=== PATIENT | male | born 1975 | race Caucasian/White ===

== ENCOUNTER → 2020-12-04 | Outpatient (CLI) | payer OTHER ==
[2020-12-05 09:13] LABS: FSH, SERUM 5.5 mIU/mL (1.5-12.4); PROLACTIN 7.9 ng/mL (4.0-15.2)
[2020-12-06 15:10] LABS: TESTOSTERONE, SERUM 146 ng/dL (264-916)
== END ==
LOC: LAB 09:33
PROVIDERS: Emergency Medicine
DX: I10 Essential (primary) hypertension (principal); E78.2 Mixed hyperlipidemia; F52.21 Male erectile disorder; R74.02 Elevation of levels of lactic acid dehydrogenase [LDH]
CPT/HCPCS: 36415; 83001; 83002; 84146; 84402; 84403

== ENCOUNTER → 2021-06-07 | Outpatient (CLI) | payer OTHER ==
[2021-06-07 12:28] LABS: RED BLOOD COUNT 5.09 M/UL (4.20-5.50)
[2021-06-07 12:47] LABS: BUN/CREATININE RATIO 26 (0-10)
[2021-06-09 12:30] LABS: CHOLESTEROL, TOTAL 170 mg/dL (100-199); HDL SIZE 8.7 nm (>=9.2); HDL-C 32 mg/dL (>39); HDL-P (TOTAL) 32.3 umol/L (>=30.5); LARGE HDL-P 2.7 umol/L (>=4.8); LDL SIZE 19.7 nm (>20.5); LDL SIZE 19.7 nm (>=20.8); LDL-C 84 mg/dL (0-99); LDL-P 1294 nmol/L (<1000); LP-IR SCORE 91 (<=45); SMALL LDL-P 1042 nmol/L (<=527); TRIGLYCERIDES 332 mg/dL (0-149); VLDL SIZE 61.6 nm (<=46.6)
== END ==
LOC: LAB 10:54
PROVIDERS: Emergency Medicine
DX: E78.2 Mixed hyperlipidemia (principal); I10 Essential (primary) hypertension; M77.11 Lateral epicondylitis, right elbow
CPT/HCPCS: 36415; 80053; 80061; 83704; 84550; 85025

== ENCOUNTER → 2021-10-25 | Outpatient (CLI) | payer OTHER | LOC: RAD 14:36 | DX: M13.811 Other specified arthritis, right shoulder (principal) | CPT/HCPCS: 73030 ==